=== PATIENT | male | born 1950 | race Caucasian/White ===

== ENCOUNTER 2022-03-07 07:53 | Emergency (ER) | payer OTHER, SELFPAY ==
[2022-03-07 08:16] VITALS: BP 150/88; PULSE 97; RESP 18; TEMP 36.4; O2SAT 94
--- NOTE | 2022-03-07 09:15 | ED.GENADULT ---
HPI - General Adult General Time Seen by Provider: 09:15 Date Seen: 03/07/22 Chief complaint: Fall/Minor Trauma Stated complaint: Fell 2 days ago injured ribs Work Comp Time Seen by Provider: 03/07/22 08:55 Source: patient and RN notes reviewed Mode of arrival: ambulatory Limitations: no limitations History of Present Illness HPI narrative: This 71-year-old male is coming in with right chest wall pain, hurting with movement and breathing. He fell going into work 2 days ago. He thinks his right foot slipped. His right mcnamara hit the step and he hit the ground on his right chest wall. He is not short of breath, did not lose consciousness, did not hit his head, has no back pain, no abdominal pain, maybe feels a little right shoulder discomfort at times but is not concerned about that. It is his right chest wall that is hurting him. This happened when he was going into work. He does note that he has had some intermittent nausea, is not sure if it is from the pain or not. Did review with him that we have seen some nausea with COVID, he declines any testing, states his has test strips at home. He is adamant he is having no abdominal pain, no vomiting. Related Data Home Medications Medication Instructions Recorded Confirmed albuterol sulfate 90 mcg/actuation inhalation 03/07/22 aerosol inhaler atorvastatin 40 mg tablet mg 03/07/22 Previous Rx's Medication Instructions Recorded tramadol 50 mg tablet 50 mg PO Q8H PRN pain #10 tabs 03/07/22 Allergies Allergy/AdvReac Type Severity Reaction Status Date / Time methocarbamol [From Robaxin] AdvReac Intermediate headache Verified 03/07/22 08:22 amoxicillin AdvReac Mild rash Verified 03/07/22 08:22 Review of Systems Status of ROS: Reports: 6 or more systems reviewed and unremarkable except as noted in History and below PFS PFS Social History Smoking Status: Never smoker Do you use any of these nicotine containing products: None Second hand tobacco smoke exposure: No How often do you have a drink containing alcohol: never How often do you have six or more drinks on one occasion: Never AUDIT-C Alcohol total score: 0 Non-prescribed substance use: denies use Exam Const: Vital Signs, click to edit/add: Vital Signs - 24 hr 03/07/22 08:16 Temperature 97.5 F L Pulse Rate [Pulse Oximeter] 97 Respiratory Rate 18 Blood Pressure [Le ft Upper Arm] 150/88 H Pulse Oximetry 94 Oxygen Delivery Me thod Room Air Documenting provider has reviewed patient's vital signs: yes Common normals: no apparent distress, average body habitus, oriented x3, no limitations, alert and well nourished General appearance: cooperative, comfortable (Until he moves, then can see he has discomfort as he grabs his right chest), in distress (Only with movement), frail appearing and limp HENMT: Common normals: normocephalic, head/scalp atraumatic, hearing grossly normal bilaterally, external nose normal, nasal mucous membranes and turbinates normal, moist oral mucous membranes, oropharynx normal, dentition normal and gingiva normal Head and scalp: normocephalic and atraumatic Nose: external nose normal and nasal mucous membranes and turbinates normal Eye: Common normals: PERRL, EOMs intact bilaterally, conjunctivae normal and no scleral icterus Conjunctiva: conjunctiva(e) normal Pupil: PERRL Neck & C-Spine: Common normals: full ROM (No midline tenderness), no lymphadenopathy, supple, no meningeal signs, no JVD and thyroid normal Thyroid: thyroid normal Chest: Common normals: inspection of chest normal Other: Has definite right chest wall tenderness anteriorly and posteriorly but no crepitus, no step-off. Do not see any bruising or ecchymosis. He does have some mid to lower central spinous tenderness over the thoracic spine. Patient states he had not noticed that there was any back pain with this. This was the 1st time he had noticed any pain when I palpated. Resp: Common normals: normal respiratory effort, no retractions, no use of accessory muscles and clear to auscultation bilaterally (But somewhat distant breath sounds) Auscultation: clear to auscultation bilaterally (But somewhat distant breath sounds) Cardio: Common normals: no JVD, regular rate, regular rhythm, S1 normal heart sound, S2 normal heart sound, no gallops, no clicks, no murmurs and no rub Rate: regular rate Rhythm: regular rhythm Heart sounds: S1 normal and S2 normal GI: Common normals: Normal to inspection, nondistended, normoactive bowel sounds present, soft to palpation, non-tender, no hepatosplenomegaly and no masses Palpation: soft and no hepatosplenomegaly Extremity: Other: Has a superficial abrasion anterior mid right tibia, scabbed, no evidence of any erythema, no surrounding bruising. Patient ambulates with a cane. Neuro: Common normals: oriented x3 Sensorium/orientation: alert Meningeal signs: no meningeal signs Course Course Hospital Course: Will go ahead and check chest x-ray with right rib views, thoracic spine x-rays. Given he did this 2 days ago, do not feel we need any emergent CTs at this time. If I do identify any concerning or significant pathology on imaging, may indicate further workup but would discuss with patient further. Reevaluation(s) Reevaluation #1: Patient is still visibly uncomfortable with movement. Reviewed with him that his x-rays are not showing any evidence of any acute traumatic change or fracture. He has been using extra-strength Tylenol, states he needs something stronger. He states he has tried a lot of pain medicines through the past as he has a back issue. He denies any chronic addiction issues, denies any significant complications with any pain medicines. Reviewed with him that I will be checking the [place] prescribing website, will consider some tramadol but need to look at any prior prescriptions 1st. (review of the [facility] prescribing website shows prior prescriptions of gabapentin only) Time: 11:30 Vital Signs Vital signs: Initial Vital Signs Temperature 97.5 F L 03/07/22 08:16 Temperature Source Temporal Artery Scan 03/07/22 08:16 Pulse Rate 97 03/07/22 08:16 Respiratory Rate 18 03/07/22 08:16 Blood Pressure 150/88 H 03/07/22 08:16 Blood Pressure Mean 108 03/07/22 08:16 Blood Pressure Position Sitting 03/07/22 08:16 Pulse Oximetry 94 03/07/22 08:16 Oxygen Delivery Method 03/07/22 08:16 Vital Signs Temperature 97.5 F L 03/07/22 08:16 Pulse Rate 97 03/07/22 08:16 Respiratory Rate 18 03/07/22 08:16 Blood Pressure 150/88 H 03/07/22 08:16 Pulse Oximetry 94 03/07/22 08:16 Oxygen Delivery Method 03/07/22 08:16 Temperature 97.5 F L 03/07/22 08:16 Pulse Rate 97 03/07/22 08:16 Respiratory Rate 18 03/07/22 08:16 Blood Pressure 150/88 H 03/07/22 08:16 Pulse Oximetry 94 03/07/22 08:16 Oxygen Delivery Method 03/07/22 08:16 Medical Decision Making Imaging Data X-ray right rib views with chest x-ray: Attestation: I have reviewed the pertinent imaging results. My impression: A my preliminary review, do not see any evidence of any acute rib fractures, no acute changes of cardiopulmonary structures, await Radiology over-read. Radiologist's impression: Patient: NATALIE MCCLELLAN Facility:?[facility] Patient ID:?[id number] Site Patient ID:?[id number]. Site :?[id number] Study:?XRay Chest RT RIBS-03/07/2022 10:55:42 AM Ordering Physician:Wayne Thompson Final Report: INDICATION: Fall. TECHNIQUE: PA chest as well as 2 additional views of the right ribs. COMPARISON: None available. FINDINGS: No displaced rib fracture. No focal pulmonary opacity, pneumothorax, or pleural effusion. Normal cardiac and mediastinal contours. IMPRESSION: No displaced rib fracture or acute cardiopulmonary findings. Dictated by Louis Stark MD @ 03/07/2022 11:03:13 AM Dictated by: Louis Stark MD @ 03/07/2022 11:03:20 (Electronic Signature) X-ray thoracic spine: Attestation: I have reviewed the pertinent imaging results. My impression: Patient has osteopenic bones, difficult for me to quantify any vertebral height, will need to await radiology over read for assistance in these images. Radiologist's impression: Patient: NATALIE MCCLELLAN Facility:?[facility] Patient ID:?[id number] Site Patient ID:?[id number]. Site :?[id number] Study:?XRay Spine Thoracic 3 VIEWS-03/07/2022 10:58:32 AM Ordering Physician:Wayne Thompson Final Report: INDICATION: Fall. TECHNIQUE: Three views of the thoracic spine. COMPARISON: None available. FINDINGS: Diffuse demineralization. Visualization of the upper thoracic vertebrae is degraded on the lateral projections due to demineralization overlying attenuating structures. No static spondylolisthesis. The visualized thoracic vertebral body heights appear maintained. Mild multilevel spondylosis. IMPRESSION: Diffuse demineralization without thoracic spondylolisthesis or vertebral height loss identified. Dictated by Louis Stark MD @ 03/07/2022 11:04:37 AM Dictated by: Louis Stark MD @ 03/07/2022 11:04:41 (Electronic Signature) Critical Care Time Critical Care Time Critical Care Time: No Discharge Plan Discharge Clinical Impression: Right-sided chest wall pain, Fall Condition: Stable Instructions: Fall Prevention (ED), Chest Wall Pain (ED) Additional Instructions: Can continue with Tylenol 1000 mg 3 times a day baseline for pain. Hang onto year chest wall, called splinting, with movement, coughing or sneezing. This sometimes can help minimize discomfort. Can try the tramadol if you are not driving or operating machinery for more severe pain. Follow the prescription. If you have difficulty breathing, shortness of breath, other concerns develop, please seek re-evaluation. Follow-up with your primary care provider this next week. If you need further pain management, this will have to be provided through clinic. Activity Level: Activity as Tolerated Prescriptions: New tramadol 50 mg tablet 50 mg PO Q8H PRN (Reason: pain) Qty: 10 0RF No Action atorvastatin 40 mg tablet Label Comments: TAKE 1 TABLET BY MOUTH AT BEDTIME albuterol sulfate 90 mcg/actuation HFA aerosol inhaler INHALATION Label Comments: TAKE 2 PUFFS BY MOUTH EVERY 4 HOURS NEEDED Stand Alone Forms: [facility] Info Instructions
--- NOTE | 2022-03-07 09:20 | CRLHL7_ITS ---
For Patients: As a result of the Cures Act, medical imaging exams and procedure reports are released immediately into your electronic medical record. You may view this report before your referring provider. If you have questions, please contact your health care provider. INDICATION: Fall. TECHNIQUE: PA chest as well as 2 additional views of the right ribs. COMPARISON: None available. FINDINGS: No displaced rib fracture. No focal pulmonary opacity, pneumothorax, or pleural effusion. Normal cardiac and mediastinal contours. IMPRESSION: No displaced rib fracture or acute cardiopulmonary findings. Dictated by Louis Stark MD @ 03/07/2022 11:03:13 AM Dictated by: Louis Stark MD @ 03/07/2022 11:03:20 (Electronically Signed)
--- NOTE | 2022-03-07 09:20 | CRLHL7_ITS ---
For Patients: As a result of the Cures Act, medical imaging exams and procedure reports are released immediately into your electronic medical record. You may view this report before your referring provider. If you have questions, please contact your health care provider. INDICATION: Fall. TECHNIQUE: Three views of the thoracic spine. COMPARISON: None available. FINDINGS: Diffuse demineralization. Visualization of the upper thoracic vertebrae is degraded on the lateral projections due to demineralization overlying attenuating structures. No static spondylolisthesis. The visualized thoracic vertebral body heights appear maintained. Mild multilevel spondylosis. IMPRESSION: Diffuse demineralization without thoracic spondylolisthesis or vertebral height loss identified. Dictated by Louis Stark MD @ 03/07/2022 11:04:37 AM Dictated by: Louis Stark MD @ 03/07/2022 11:04:41 (Electronically Signed)
== END 2022-03-07 11:49 | disposition home or self-care (01) ==
PROVIDERS: Emergency Provider Family Medicine; PCP Family Medicine
DX: R07.89 Other chest pain (principal)
CPT/HCPCS: 71101; 72070; 99283; 99284

== ENCOUNTER 2023-02-12 11:15 | Outpatient (RCR) | payer BC, SELFPAY | END 2023-04-15 14:24 | disposition home or self-care (01) | PROVIDERS: PCP Family Medicine; Visit Provider Family Medicine | DX: R29.898 Other symptoms and signs involving the musculoskeletal system (principal); R53.1 Weakness; R53.81 Other malaise; R29.6 Repeated falls; R26.89 Other abnormalities of gait and mobility; Z51.89 Encounter for other specified aftercare | CPT/HCPCS: 97110; 97116; 97140; 97162; 97164 ==

== ENCOUNTER 2023-09-27 10:32 | Outpatient (CLI) | payer BC, SELFPAY ==
--- NOTE | 2023-09-27 11:20 | W.ANESCHARGE ---
Anesthesia Charges Start Date/Time Anesthesia Start Date: 09/27/23 Anesthesia Start Time: 11:18 Stop Date/Time Anesthesia Stop Date: 09/27/23 Anesthesia Stop Time: 12:04 Summary Extremes of Age - Over 70 or under 1: MDA
--- NOTE | 2023-09-27 12:08 | W.ANESCHARGE ---
Anesthesia Charges Start Date/Time Anesthesia Start Date: 09/27/23 Anesthesia Start Time: 11:18 Stop Date/Time Anesthesia Stop Date: 09/27/23 Anesthesia Stop Time: 12:04
== END 2023-09-27 10:33 | disposition home or self-care (01) ==
LOC: OP CLINIC 10:33
PROVIDERS: PCP Family Medicine; Visit Provider Internal Medicine Gastroenterology
DX: Z12.11 Encounter for screening for malignant neoplasm of colon (principal); K63.5 Polyp of colon; K57.30 Diverticulosis of large intestine without perforation or abscess without bleeding; Z86.010 Personal history of colon polyps
CPT/HCPCS: 00811; 45385; 88305; 99100; J2704

== ENCOUNTER 2024-02-18 10:26 | Emergency (ER) | payer BC, SELFPAY ==
[2024-02-18 10:38] VITALS: BP 161/81; PULSE 77; RESP 18; TEMP 36.7; O2SAT 97; BMI 24.4
--- NOTE | 2024-02-18 10:59 | ED.GENADULT ---
HPI - General Adult General Chief complaint: Extremity Pain/Injury, Lower Stated complaint: fell on left hip yesterday Time Seen by Provider: 02/18/24 10:58 History of Present Illness HPI narrative: Patient reports left leg feeling weak and giving out while he was at work yesterday around 12 AM. Does use cane or walker for ambulation. Later he also had episode where left arm was weak. Had an additional fall last night that he reports was due to the pain from the fall in left hip. checked his BP last night and noted it was elevated. Patient denies any weakness currently. 73 year old man presenting to the emergency department after a fall yesterday. [place] like his left leg gave out. Does have a history of a back surgeries of the lumbar spine including diskectomy and laminectomy. Underlying history of a peripheral neuropathy. This fall resulted in some pain in particular in the left hip and then subsequently had another fall. Does have a hip replacement in the left side. Spouse than of checked blood pressure and there is some concerns of it also being elevated. Typically uses a cane or a walker. Does continue to smoke. Related Data Home Medications ?Medication ?Instructions ?Recorded ?Confirmed albuterol sulfate 90 mcg/actuation inhalation 03/07/22 aerosol inhaler atorvastatin 40 mg tablet mg 03/07/22 cyanocobalamin (vitamin B-12) 1,000 mcg PO DAILY 02/18/24 02/18/24 1,000 mcg tablet doxazosin 8 mg tablet 8 mg PO QPM 02/18/24 02/18/24 fluticasone fur. 100 mcg-umeclid 1 ea inhalation DAILY 02/18/24 02/18/24 62.5 mcg-vilant 25 mcg inhalat.powder (Trelegy Ellipta) gabapentin 300 mg capsule mg PO 02/18/24 metoprolol succinate 100 mg 100 mg PO DAILY 02/18/24 02/18/24 tablet,extended release 24 hr potassium chloride 20 mEq 20 meq PO BID 02/18/24 02/18/24 tablet,extended release(part/cryst) (Klor-Con M) Allergies Allergy/AdvReac Type Severity Reaction Status Date / Time amlodipine Allergy Verified 09/27/23 11:24 lisinopril Allergy Verified 09/27/23 11:24 methocarbamol (From Robaxin) AdvReac Intermediate headache Verified 09/27/23 11:24 amoxicillin AdvReac Mild rash Verified 09/27/23 11:24 Review of Systems Status of ROS: Reports: 6 or more systems reviewed and unremarkable except as noted in History and below [facility] Social History Smoking Status: Current every day smoker Do you use any of these nicotine containing products: None Second hand tobacco smoke exposure: No How often do you have a drink containing alcohol: never How often do you have six or more drinks on one occasion: Never AUDIT-C Alcohol total score: 0 Non-prescribed substance use: denies use Exam Narrative: Exam Narrative: Pleasant. Smell of cigarette smoke. Breathing easily though. Blood pressure noted 161/81. Heart in regular rate and rhythm. Appears to have good strength at this time in both upper and lower extremities though limited due to pain particularly in the left leg. He is sore to palpation over the greater trochanter of the left hip. Swelling here. Small intradermal bruising on the left forearm. No increased pain to anterior compression of the iliac crest. Const: Vital Signs, click to edit/add: Vital Signs - 24 hr 02/18/24 10:38 Temperature 98.1 F Pulse Rate [Pulse Oximeter] 77 Respiratory Rate 18 Blood Pressure [Ri ght Upper Arm] 161/81 H Pulse Oximetry 97 Oxygen Delivery Me thod Room Air Documenting provider has reviewed patient's vital signs: yes Course Vital Signs Vital signs: Initial Vital Signs Temperature 98.1 F 02/18/24 10:38 Temperature Source Temporal Artery Scan 02/18/24 10:38 Pulse Rate 77 02/18/24 10:38 Respiratory Rate 18 02/18/24 10:38 Blood Pressure 161/81 H 02/18/24 10:38 Blood Pressure Mean 107 H 02/18/24 10:38 Pulse Oximetry 97 02/18/24 10:38 Oxygen Delivery Method Room Air 02/18/24 10:38 Vital Signs Temperature 98.1 F 02/18/24 10:38 Pulse Rate 77 02/18/24 10:38 Respiratory Rate 18 02/18/24 10:38 Blood Pressure 161/81 H 02/18/24 10:38 Pulse Oximetry 97 02/18/24 10:38 Oxygen Delivery Method Room Air 02/18/24 10:38 Temperature 98.1 F 02/18/24 12:41 Pulse Rate 77 02/18/24 12:41 Respiratory Rate 18 02/18/24 12:41 Blood Pressure 161/81 H 02/18/24 12:41 Pulse Oximetry 97 02/18/24 10:38 Oxygen Delivery Method Room Air 02/18/24 10:38 Medications Administered Medications: Discontinued Medications Generic Name Dose Route Start Last Admin Trade Name [place] PRN Reason Stop Dose Admin Ibuprofen 600 mg 02/18/24 11:44 02/18/24 11:54 Ibuprofen 200 Mg Tablet PO 02/18/24 11:45 600 mg ONCE ONE Administration Oxycodone HCl 5 mg 02/18/24 11:44 02/18/24 11:54 Oxycodone 5 Mg Tablet PO 02/18/24 11:45 5 mg ONCE ONE Administration Medical Decision Making MDM Narrative Medical decision making narrative: Think that if we can control pain somewhat might be able to move more. Appears to have caused pain to the greater trochanter area. Would do x-rays to confirm hardware stability though I suspect that this will be normal. Trochanteric bursitis is enough to further limit mobility here. Does not appear that there is other underlying reason for the fall other than related to usual limitations in mobility from neuropathy and surgical history. Given a tab of oxycodone as well as ibuprofen 600 mg. X-ray of the left hip reviewed by me shows intact hardware. Postop changes also noted in the lumbar spine. Particular notable are extensive vascular calcifications. TECHNIQUE: Pelvis one view. Left hip two views. COMPARISON: 09/04/2019. FINDINGS: Left hip arthroplasty appears appropriately positioned. No evidence of acute fracture or hardware complication. Right hip degenerative changes, as before. Fusion hardware in the visualized lumbar spine as imaged appears intact. No additional osseous abnormality. Extensive vascular calcifications. IMPRESSION: No evidence of acute fracture or hardware complication Is notably improved with treatment provided here. Discussed options for pain management. Discussed all findings with Mr. Gee. Particularly concerned regarding continued smoking. Discussed risks of smoking and encouraged cessation. I believe has been recommended for aspirin as well as atorvastatin the latter he discontinue think that might be affecting his stomach; would give that another try. See patient discharge plan for further discussion Do what you can do quit smoking. Counseling at least I believe is still available through quit plan if you want. Begin coated 81 mg aspirin daily. Consider restarting your atorvastatin and see if your stomach does okay with that. Prescribing [place] from [facility] for this hip injury. You have hurt the area where you can get a phenomenon called greater trochanteric bursitis. There is a cushioning sac there that can get rather inflamed. I am including some exercises that might be helpful in getting you over this pain as well. I would ice this area 2-3 times daily over the next few days. Please follow-up closely with your primary care provider to get this blood pressure under control. Medical Records Medical records reviewed: Yes I reviewed the patient's medical records Discharge Plan Discharge Clinical Impression: Hip pain, High blood pressure, Hematoma, Contusion, Nicotine dependence, Fall Patient Disposition: Home w/ Parent or Adult Condition: Stable Additional Instructions: Do what you can do quit smoking. Counseling at least I believe is still available through quit plan if you want. Begin coated 81 mg aspirin daily. Consider restarting your atorvastatin and see if your stomach does okay with that. Prescribing [place] from [facility] for this hip injury. You have hurt the area where you can get a phenomenon called greater trochanteric bursitis. There is a cushioning sac there that can get rather inflamed. I am including some exercises that might be helpful in getting you over this pain as well. I would ice this area 2-3 times daily over the next few days. Please follow-up closely with your primary care provider to get this blood pressure under control. Prescriptions: No Action metoprolol succinate 100 mg tablet extended release 24 hr 100 mg PO DAILY cyanocobalamin (vitamin B-12) 1,000 mcg tablet 1,000 mcg PO DAILY doxazosin 8 mg tablet 8 mg PO QPM potassium chloride [Klor-Con M20] 20 mEq tablet,ER particles/crystals 20 meq PO BID gabapentin 300 mg capsule PO Trelegy Ellipta 100-62.5-25 mcg blister with device 1 ea INHALATION DAILY atorvastatin 40 mg tablet Patient Comments: TAKE 1 TABLET BY MOUTH AT BEDTIME albuterol sulfate 90 mcg/actuation HFA aerosol inhaler INHALATION Patient Comments: TAKE 2 PUFFS BY MOUTH EVERY 4 HOURS NEEDED Follow Up/Referrals: Amanda Reinoso DO [Primary Care Provider] - Stand Alone Forms: [email or web address] Info Instructions
--- NOTE | 2024-02-18 11:00 | CRLHL7_ITS ---
For Patients: As a result of the Cures Act, medical imaging exams and procedure reports are released immediately into your electronic medical record. You may view this report before your referring provider. If you have questions, please contact your health care provider. INDICATION: Fall. Hip pain. TECHNIQUE: Pelvis one view. Left hip two views. COMPARISON: 09/04/2019. FINDINGS: Left hip arthroplasty appears appropriately positioned. No evidence of acute fracture or hardware complication. Right hip degenerative changes, as before. Fusion hardware in the visualized lumbar spine as imaged appears intact. No additional osseous abnormality. Extensive vascular calcifications. IMPRESSION: No evidence of acute fracture or hardware complication. Dictated by Cody Larson MD @ 02/18/2024 11:50:04 AM (Electronically Signed)
--- OUTSIDE RECORDS SUMMARY | 2024-02-18 11:32 | XMS_ITS | Clinical Summary ---
Author Organization [facility] Address [place], [place] [address] Care Team Providers Care Cow Buyer Name Role Phone Amanda Reinoso Primary Care Provider Allergies Active Allergy Reactions Criticality Noted Date Comments Amlodipine Gingival Hypertrophy 02/02/2022 Amoxicillin Rash Low 09/21/2005 Lisinopril Angioedema,Shortness Of Breath High 12/27/2014 Other reaction(s): Swelling Swelling of tongue Methocarbamol Headache 09/21/2005 Headache severe Medications Medication Sig Dispensed Refills Start Date End Date Status MULTIVITAMIN TAB take 1 tablet by oral route once daily with food 0 10/11/2006 Active acetaminophen (TYLENOL EXTRA STRENGTH) 500 mg tablet Take 1 tablet by mouth every 6 hours if needed. Max acetaminophen dose: 4000mg in 24 hrs. 100 tablet 3 03/24/2010 Active Blood Pressure Monitor (BLOOD PRESSURE KIT)Indications:Ess ential hypertension Diagnosis: hypertension Use as directed 1 Device 04/29/2020 Active nicotine (NICOTROL) 10 mg inhalerIndications: Tobacco abuse Inhale 10 mg by mouth every hour while awake as needed for Nicotine Craving. 168 Each 3 06/03/2023 Active cyanocobalamin (VITAMIN B12) 1,000 mcg tabletIndications:V itamin B12 deficiency Take 1 Tablet (1,000 mcg) by mouth once daily. 90 Tablet 3 06/03/2023 Active gabapentin (NEURONTIN) 300 mg capsuleIndications: Spinal stenosis of lumbar region without neurogenic claudication,Lumbar radiculopathy Take 2 Capsules (600 mg) by mouth two times daily. 360 Capsule 3 06/03/2023 Active nicotine 2 mg lozengeIndications: Tobacco abuse Place 1 Lozenge (2 mg) in mouth, between cheek & gum every hour while awake as needed for Nicotine Craving. 48 Lozenge 3 06/03/2023 Active polyethylene glycol-electrolyte (GOLYTELY) 236-22.74-6.74 -5.86 gram suspensionIndicatio ns:Adenomatous polyp of colon, unspecified part of colon Drink 2 liters the day before colonoscopy and 2 liters 6 hours before colonoscopy appointment 4000 mL 07/12/2023 Active albuterol HFA (PRO-AIR; VENTOLIN; PROVENTIL) 90 mcg/actuation inhalerIndications: Asthma-chronic obstructive pulmonary disease overlap syndrome (HC),COPD, severe (HC) TAKE 2 PUFFS BY MOUTH EVERY 4 HOURS NEEDED 18 g 6 07/01/2023 Active nicotine 21 mg/24 hr (NICODERM; HABITROL) 21 mg/24 hr patchIndications:To bacco abuse Apply 1 Patch on dry, clean, hairless skin once daily. 30 Patch 3 07/07/2023 Active NebulizerIndication s:COPD exacerbation (HC) Nebulizer, disposable neb kit x 4, reuseable neb kit x 1, mask x 1, filters x 1. Frequency of use: daily; Medication: duoneb Length of need: 99 months 08/27/2023 Active albuterol-ipratropi um (DUONEB) (2.5-0.5 mg) in 3 mL NEBULIZATION solutionIndications :COPD exacerbation (HC) Inhale 3 mL via a nebulizer 4 times daily if needed for Shortness Of Breath or Wheezing. 1080 mL 3 08/27/2023 Active metoprolol succinate (TOPROL XL) 100 mg Sustained-Release tabletIndications:E ssential hypertension TAKE 1 TABLET BY MOUTH EVERY DAY 90 Tablet 2 10/11/2023 Active potassium chloride (KLOR-CON M20) 20 mEq extended-release tablet (part/cryst)Indicat ions:Hypokalemia Take 1 Tablet (20 mEq) by mouth two times daily with meals. 180 Tablet 3 10/25/2023 Active atorvastatin (LIPITOR) 40 mg tabletIndications:M ixed hyperlipidemia Take 1 Tablet (40 mg) by mouth at bedtime. 90 Tablet 3 12/01/2023 Active doxazosin (CARDURA) 8 mg tabletIndications:E ssential hypertension Take 1 Tablet (8 mg) by mouth at bedtime. 90 Tablet 3 12/14/2023 Active fluticasone blk-lojuskstynly-kp lanterol (Trelegy Ellipta) 100-62.5-25 mcg inhalerIndications: COPD, severe (HC) INHALE 1 PUFF BY MOUTH EVERY DAY 180 Each 12/20/2023 Active Active Problems Problem Noted Date Diagnosed Date Tobacco abuse 06/03/2023 Vitamin B12 deficiency 06/03/2023 MGUS (monoclonal gammopathy of unknown significa nce) 06/03/2023 Moderate COPD (chronic obstructive pulmonary dis ease) 06/03/2023 Peripheral sensory neuropathy 06/03/2023 Primary hypertension 01/05/2023 Depression, recurrent 08/05/2022 CKD (chronic kidney disease), stage II 3 Adenomatous colon polyp 04/07/2018 Overview (09/30/2023): Colonoscopy 04/2018 multiple polyps, repeat in 6 months at [facility] Colonoscopy 09/2023 multiple polys, repeat in 3 years Allergic rhinitis 08/15/2015 Issue of repeat prescription 02/03/2015 Overview (02/03/2015): Severe lumbar stenosis. Surgery recommended, but insurance requires 12 weeks of physical therapy first. Percocet 5/325 1 tablet twice daily #60/month. Substance agreement signed 01/30/15. Spinal stenosis of lumbar region 02/03/2015 Lumbar radiculopathy 02/03/2015 Fatty liver disease, nonalcoholic 12/19/2014 Overview (12/19/2014): CT chest 12/12/14. DDD (degenerative disc disease), lumbar 12/08/19 15 Dupuytren's contracture 12/26/2013 Overview (12/26/2013): Dec 2013: Xiaflex injection by Dr. Najera. Chest pain, resolved. 05/[address] udy 08/15/2012 Enthesopathy of ankle and tarsus, unspecified 02 /03/2008 Regular astigmatism 03/30/2007 Presbyopia 03/30/2007 Myopia 03/30/2007 DEPRESSION 02/08/2002 TOBACCO USE 07/06/2001 HERNIA - UNILATERAL INGUINAL 07/06/2001 HYPERTENSION - ESSENTIAL 11/01/2000 HYPERLIPIDEMIA - MIXED 11/01/2000 Resolved Problems Problem Noted Date Diagnosed Date Resolved Date Acute respiratory failure with hypoxia 04/12/2023 06/03/2023 Chronic bronchitis 03/08/2015 Paresthesias/numbness 02/03/20152023 Positive occult stool blood test 11/30/2013 06/03/2023 Elevated liver enzymes 03/13/201311/15 Diabetes type 2, controlled 01/11/2012 01/11/2012 Corns and callosities 05/12/20052023 UPPER RESPIRATORY INFECTION - ACUTE 02/03/2005 10/11/2006 CHRONIC OBSTRUCTIVE PULMONARY DISEASE 12/12/2003 06/03/2023 Overview (12/19/2014): Emphysema. Patient denies symptoms. Has combivent. 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 Display name retained. ABD PAIN 12/12/2003 PITYRIASIS ROSEA 12/12/2003 INJURY, SUPERFICIAL, CORNEA-OS 12/12/2003 Encounters Date Type Department Care Team Description 12/20[facility] [place] [facility] [address] [place] [address] Francy Sheridan PA Refill Request (fluticasone cfu-axuccdikminj-hc lanterol (Trelegy Ellipta) 100-62.5-25 mcg inhaler) 12/15/2023 Refill [facility] [address] [place] [address] Francy Sheridan PA Refill Request (Trelegy Ellipta) 12/14/2023 11:15 AM CDT Nurse/Clinic Staff Only [facility] [address] [place] [address] Blood Pressure 12/14/2023 Telephone [facility] [address] [place] [address] Amanda Reinoso, Blood Pressure 12/14/2023 Travel 12/01/2023 10:50 AM CDT Office Visit [facility] [address] [place] [address] Amanda Reinoso, Medication Management (follow up ) 12/01/2023 Travel from Last 3 Months Immunizations Name Administration Dates Next Due COVID-19 vaccine ([employer] J) PF, MDAnne 06/15/2020 Influenza, High-dose Inactivated 11/28/2015 Influenza, High-dose Quadriv alent Inactivated 02/18/2020 Influenza, IIV3 (Age 6-35 mos) 01/24/2008 Influenza, IIV3 (Age >=3 years) 12/12/2003 Influenza, IIV4 02/15/2014 Influenza, Inactivated AIIV4 (Age 65+ Years) Preserv Free 01/13/2023,02/02/2022,01/21/2021,2019 Influenza, Inactivated IIV3 (Age 65+ Years) Preserv Free 04/13/2019,12/24/2016 Pneumococcal Poly,23-Valent (Pneumovax) 04/13/2019,12/12/2003 Pneumococcal conj 13-Valent (Prevnar 13) 11/28/2015 Tdap 08/23/2018,02/23/2008 Family History Medical History Relation Name Comments Cancer Father Lung ca., did s moke Cancer Mother liver ca. Cancer-breast Mother Genetic Other no family hx of pulmonary diseases or cancer Relation Name Status Comments Father Mother Other Social History Tobacco Use Types Packs/Day Years Used Date Smoking Tobacco: Every Day Cigarettes 1 41.3 Started: 1981; Last attempted to quit: 04/05/2021 Smokeless Tobacco: Never Tobacco Cessation:Ready to Q uit: Not Asked; Counseling Given: Not Answered Comments:Smoked since age 14, about 1 pack per day- quit in 2021 but resumed later 2022 Alcohol Use Standard Drinks/Week Comments Yes 3 (1 standard drink = 0.6 oz pur e alcohol) 10 drinks per week PHQ-2 Answer Date Recorded PHQ-2 TOTAL SCORE 2 06/03/2023 Social Connections Answer Date Recorded Do you often feel lonely or isolated from those around you? 0 04/12/2023 Financial Resource Strain Answer Date R ecorded Difficulty of Paying Living Expenses 3 04/12/2023 Difficulty of Paying Living Expenses Not on file 04/12/2023 Food Insecurity Answer Date Recorded Do you worry your food will run out before you are able to buy more? 1 04/12/2023 Transportation Needs Answer Date Record ed Does lack of transportation keep you from medica l appointments? 1 04/12/2023 Does lack of transportation keep you from work, meetings or getting things that you need? 1 04/12/2023 Housing Stability Answer Date Recorded What is your housing situation today? 1 04/12/2023 Sex and Gender Information Value Date Recorded Sex Assigned at Not on file Gender Identity Not on file Sexual Orientation Not on file Obstetrics History Last Filed Vital Signs Vital Sign Reading Time Taken Comments Blood Pressure 138/80 12/14/2023 11:18 AM CDT Pulse 60 12/14/2023 11:13 AM CDT Temperature 36.4 ??C (97.5 ??F) 08/27/2023 7:57 AM CD T Respiratory Rate 16 12/29/2022 12:0 5 PM CDT Oxygen Saturation 96% 09/22/2023 10: 04 AM CDT Inhaled Oxygen Concentration - - Weight 84.3 kg (185 lb 14.4 oz) 024 11:03 AM CDT Height 185.4 cm (6' 1) 12/01/2023 11:0 3 AM CDT Body Mass Index 24.53 12/01/2023 11:03 AM CDT Plan of Treatment Upcoming Encounters Date Type Department Care Team (Late st Contact Info) Description 02/23/2024 11:30 AM HOSPITAL EDUCATOR Ancillary Procedure [facility] [address] [place] [address] 03/15/2024 1:00 PM HOSPITAL EDUCATOR Telemedicine [facility] [address] [facility] [address] [facility] [address] [place] [address] Oliva Shields MD [address] [place] [address] 06/02/2024 11:10 AM HOSPITAL EDUCATOR Office Visit [facility] [address] [place] [address] [place] [address] [place] [address] Health Maintenance Due Date Last Done Comments Zoster (shingles) series for age 50+ (1 of 2) 2000 COVID-19 vaccine series (2 - 2023- season) 2023 06/15/2020 Influenza for age 65+ 12/05/2023 01/13/2023 , 02/02/2022, 01/21/2021, Additional history exists Low Dose CT (for lung CA) ag e 50-80 02/18/2024 02/17/2023, 12/01/2022, 10/16/2022, Additional history exists Depression screening for age 12+ 06/02/2024 06/03/2023, 02/02/2022, 04/10/2020, Additional history exists BMI (ht and wt on same day) for age 18+ 11/30/2024 12/01/2023, 09/22/2023, 08/27/2023, Additional history exists Colonoscopy through age 75 09/26/202609/26, 09/27/2023, 04/06/2018, Additional history exists Lipids for age 45-75 06/02/2028 06/03/2023, 02/02/2022, 04/21/2021, Additional history exists Tetanus booster 08/23/2028 08/23/2018, 02/23/2008 Hepatitis C screening for ag e 18-79 Completed 02/15/2014 Tdap Completed 08/23/2018, 02/23/2008 Pneumococcal series for age 65+ Completed 04/13/2019, 11/28/2015, 12/12/2003 AAA screening age 65-74 Completed 11/21/2021, 12/04 Procedures Procedure Name Priority Date/Time Associated Diagnosis Comments COLONOSCOPY SCREENING Routine 09/27/2023 12:00 AM CDT History of colon polyps LIPID PANEL W REFLEX MEASURED LDL Routine 06/03/2023 2:12 PM HOSPITAL EDUCATOR HYPERLIPIDEMIA - MIXED CT CHEST WO Routine 02/17/2023 11:34 AM HOSPITAL EDUCATOR Recurrent pneumonia CT ABDOMEN PELVIS STONE PROTOCOL WO Routine 11/21/2021 1:07 PM CDT Acute bilateral low back pain without sciatica ANTI HCV Routine 02/15/2014 8:49 AM HOSPITAL EDUCATOR Need for hepatitis C screening test from Last 3 Months or Most Recently Relevant to Health Maintenance Results * COLONOSCOPY SCREENING [[id number]] (09/27/2023 12:00 AM CDT) Amanda Reinoso DO GI PROCEDURE ORD * (ABNORMAL) LIPID PANEL W REFLEX MEASURED LDL (06/03/2023 2:12 PM HOSPITAL EDUCATOR) CHOLESTEROL,TOTAL 244(H) 100 - 199 mg/dL 06/03/2023 9:[address] [facility] Comment: Cholesterol, Total Reference Ranges Desirable <200 mg/dL Borderline 200-239 mg/dL High >=240 mg/dL TRIGLYCERIDES 195(H) <150 mg/dL 06/03/2023 9:[address] [facility] HDL CHOLESTEROL 71 >40 mg/dL 9:12 PM HOSPITAL EDUCATOR [facility] NON-HDL CHOLESTEROL 173(H) <145 mg/dl 06/03/2023 9:[address] [facility] CHOL/HDL RATIO 3.44 <4.50 06/03/2023 9:12 PM HOSPITAL EDUCATOR [facility] LDL CHOLESTEROL 134(H) <=130 mg/dL 06/03/2023 9:[address] [facility] VLDL CHOLESTEROL 39(H) <=30 mg/dL 06/03/2023 9:12 PM HOSPITAL EDUCATOR [facility] PROVIDER ORDERED STATUS RANDOM 06/03/2023 9:12 PM HOSPITAL EDUCATOR [facility] Blood BLOOD SPECIMEN / Unknown Venipuncture / Unknown 06/03/2023 2:12 PM HOSPITAL EDUCATOR 06/03/2023 2:12 PM HOSPITAL EDUCATOR Amanda Martínezabida [facility] [address] [place] [address], [place] * CT CHEST WO (02/17/2023 11:34 AM HOSPITAL EDUCATOR) Anatomical Region Laterality Modality CHEST, THORAX, HEART Computed To mography 02/17/2023 3:44 PM HOSPITAL EDUCATOR Narrative 02/17/2023 3:44 PM HOSPITAL EDUCATOR For Patients: ??As a result of the Century Cures Act, medical imaging exams and procedure reports are released immediately into your electronic medical record. ??You may view this report before your referring provider. ??If you have questions, please contact your health care provider. Indication: Follow-up infiltrate Technique: Noncontrast CT chest Please note that all CT scans at this facility use dose modulation, iterative reconstruction, and/or weight-based dosing when appropriate to reduce radiation dose to as low as reasonably achievable. Comparison: 12/01/2022 Findings: Decreased ill-defined density left upper lobe since the prior study with a small residual nodule present measuring 3 millimeters, 01/31. Similar nodules are present elsewhere, some calcified and some noncalcified, including a stable 10 millimeter nodule in the left upper lobe medially, . Severe bullous emphysema again noted with fibrotic changes in the right lower lobe. No pleural effusion or pulmonary edema. Extensive atherosclerosis. No pneumothorax. No large thyroid nodule. No enlarged lymph nodes. Fatty liver. No adrenal lesion. Old right-sided rib fractures. Impression: Improved infiltrate within the left upper lobe with a small residual nodule present. Stable nodules elsewhere. Please note that all CT scans at this facility use dose modulation, iterative reconstruction, and/or weight-based dosing when appropriate to reduce radiation dose to as low as reasonably achievable. Dictated by Trev Barker MD @ Feb 17 2023 ??3:44PM (Electronically Signed) ?? Procedure Note Trev Barker MD - 02/17/2023 For Patients: As a result of the Cures Act, medical imagingexams and procedure reports are released immediately into your electronicmedical record. You may view this report before your referring provider.If you have questions, please contact your health care provider. Indication: Follow-up infiltrate Technique: Noncontrast CT chest Please note that all CT scans at this facility use dose modulation,iterative reconstruction, and/or weight-based dosing when appropriate toreduce radiation dose to as low as reasonably achievable. Comparison: 12/01/2022 Findings: Decreased ill-defined density left upper lobe since the prior study with asmall residual nodule present measuring 3 millimeters, 01/31. Similarnodules are present elsewhere, some calcified and some noncalcified,including a stable 10 millimeter nodule in the left upper lobe medially,. Severe bullous emphysema again noted with fibrotic changes in theright lower lobe. No pleural effusion or pulmonary edema. Extensiveatherosclerosis. No pneumothorax. No large thyroid nodule. No enlargedlymph nodes. Fatty liver. No adrenal lesion. Old right-sided ribfractures. Impression: Improved infiltrate within the left upper lobe with a small residualnodule present. Stable nodules elsewhere. Please note that all CT scans at this facility use dose modulation,iterative reconstruction, and/or weight-based dosing when appropriate toreduce radiation dose to as low as reasonably achievable. Dictated by Trev Barker MD @ Feb 17 2023 3:44PM (Electronically Signed) Francy GIMENEZ CT * CT ABDOMEN PELVIS STONE PROTOCOL WO (11/21/2021 1:07 PM CDT) Anatomical Region Laterality Modality Abdomen, Pelvis, AORTA, LIVER, SPLEEN Computed Tomography 11/21/2021 2:01 PM CDT Narrative 11/21/2021 2:01 PM CDT For Patients: ??As a result of the Cures Act, medical imaging exams and procedure reports are released immediately into your electronic medical record. ??You may view this report before your referring provider. ??If you have questions, please contact your health care provider. Indication: Acute bilateral low back pain Technique: Noncontrast CT abdomen and pelvis Please note that all CT scans at this facility use dose modulation, iterative reconstruction, and/or weight-based dosing when appropriate to reduce radiation dose to as low as reasonably achievable. Comparison: None Findings: Mild scarring within the right lower lobe. Large bleb in the left lower lobe. No pleural effusion. No basilar infiltrate. Extensive vascular calcifications. Severe fatty infiltration of the liver. Each gallbladder normal. Calcification of all vein the right renal artery. No renal stone or hydronephrosis. The normal ureters. Adrenal glands, and pancreas and spleen are normal. No hiatal hernia. No bowel obstruction or free air. No free fluid or adenopathy. No abscess. Prostate mildly enlarged with mass effect upon the inferior bladder. Left hip replacement hardware. Postop changes of fusion L3-L5. Impression: No renal, ureteral or bladder stone. Severe vascular calcifications without aneurysm. Severe hepatic steatosis. Please note that all CT scans at this facility use dose modulation, iterative reconstruction, and/or weight-based dosing when appropriate to reduce radiation dose to as low as reasonably achievable. Dictated by Trev Barker MD @ Nov 21 2021 ??2:01PM (Electronically Signed) ?? Procedure Note Trev Barker MD - 11/21/2021 For Patients: As a result of the Century Cures Act, medical imagingexams and procedure reports are released immediately into your electronicmedical record. You may view this report before your referring provider.If you have questions, please contact your health care provider. Indication: Acute bilateral low back pain Technique: Noncontrast CT abdomen and pelvis Please note that all CT scans at this facility use dose modulation,iterative reconstruction, and/or weight-based dosing when appropriate toreduce radiation dose to as low as reasonably achievable. Comparison: None Findings: Mild scarring within the right lower lobe. Large bleb in the left lowerlobe. No pleural effusion. No basilar infiltrate. Extensive vascularcalcifications. Severe fatty infiltration of the liver. Each gallbladdernormal. Calcification of all vein the right renal artery. No renal stoneor hydronephrosis. The normal ureters. Adrenal glands, and pancreas andspleen are normal. No hiatal hernia. No bowel obstruction or free air. Nofree fluid or adenopathy. No abscess. Prostate mildly enlarged with masseffect upon the inferior bladder. Left hip replacement hardware. Postopchanges of fusion L3-L5. Impression: No renal, ureteral or bladder stone. Severe vascular calcifications without aneurysm. Severe hepatic steatosis. Please note that all CT scans at this facility use dose modulation,iterative reconstruction, and/or weight-based dosing when appropriate toreduce radiation dose to as low as reasonably achievable. Dictated by Trev Barker MD @ Nov 21 2021 2:01PM (Electronically Signed) Tacos Melo MD CT * ANTI HCV (02/15/2014 8:49 AM HOSPITAL EDUCATOR) HEPATITIS C ANTIBODY Non-Reacti ve Non-Reacti ve 02/15/2014 4:56 PM HOSPITAL EDUCATOR [facility] Blood specimen (specimen) BLOOD SPECIMEN / Unknown Venipuncture / Unknown 02/15/2014 8:49 AM HOSPITAL EDUCATOR 02/15/2014 8:50 AM HOSPITAL EDUCATOR Narrative [facility] - 02/15/2014 4:56 PM HOSPITAL EDUCATOR Antibodies to HCV not detected; does not exclude the possibility of exposure to HCV. Amanda Reinoso DO SEND OUTS [facility] [address] [place] [address], [place] from Last 3 Months or Most Recently Relevant to Health Maintenance Advance Directives Documents on File Type Date Recorded Patient Culture Manager Expl anation Treatment Guidelines 05/15/2022 Care Teams Cow Buyer Relationship Specialty Start [place] [address] [place] [address] PCP - General Family Practice 11/30/11
[2024-02-18] MEDS: IBUPROFEN 200 MG TABLET 600 MG PO (11:54)
[2024-02-18] MEDS: OXYCODONE 5 MG TABLET PO (11:54)
[2024-02-18 12:41] VITALS: BP 161/81; PULSE 77; RESP 18; TEMP 36.7
== END 2024-02-18 12:51 | disposition home or self-care (01) ==
PROVIDERS: Emergency Provider Family Medicine; PCP Family Medicine
DX: S70.02XA Contusion of left hip, initial encounter (principal); W19.XXXA Unspecified fall, initial encounter; F17.200 Nicotine dependence, unspecified, uncomplicated
CPT/HCPCS: 73502; 99284; A9270